=== PATIENT | female | born 1980 | race Two or more races ===

== ENCOUNTER → 2024-12-24 | Outpatient (CLI) | payer MEDICAID, SELFPAY ==
--- NOTE | 2024-12-24 13:00 | XR_ITS ---
Examination: Breast ultrasound, unilateral, left complete Date and time of exam: December 24, 2024 1334 hours INDICATIONS: Family history breast cancer, history ultrasound-guided breast biopsy 3:00 nodule left breast May 06, 2024, this nodule had a breast biopsy marker on ultrasound December 07, 2023 the nodule measured 26 x 22 mm Technique: Real-time luna scale ultrasonographic imaging performed left breast including all 4 quadrants as well as nipple retroareolar and axillary region. Findings: 2:00 cyst 15 x 14 mm 3:00 nodule with breast biopsy marker 24 x 19 mm lobular margins 10:00 nodule 7 x 7 mm 11:00 nodule 6 x 6 mm IMPRESSION: BI-RADS Category 3: Probably benign findings One additional 6 month right breast sonogram follow-up is needed to document stability of solid nodules described above
--- NOTE | 2024-12-24 13:41 | XR_ITS ---
Examination: Diagnostic digital mammography, bilateral Computer aided detection 3-D breast Tomosynthesis, bilateral Date and time of exam: December 24, 2024 1401 hours Compared to mammograms dating to September 26, 2022 Technique: Nonmagnified MLO, CC views of the breasts to been obtained, reconstructed from 3-D Tomosynthesis images. R2 computer aided detection program utilized for evaluation of suspicious masses and/or abnormal calcifications. 3-D Tomosynthesis images obtained. Findings: The breasts are heterogeneously dense, which may obscure small masses Breast biopsy markers left breast 11 mm circumscribed nodule at the palpable marker site nipple level left breast CC view which may represent a cyst, please see the left breast sonogram report today Grouped microcalcifications retroareolar region right breast Impression: BI-RADS Category 0: Incomplete: Need additional imaging evaluation Circumscribed 11 mm probably benign nodule at the palpable marker site left breast CC view, recommend 6 month left mammogram follow-up Recommend follow-up spot magnification views of microcalcifications retroareolar region right breast.
== END | disposition home or self-care (01) ==
LOC: CDIM 13:04
PROVIDERS: PCP Nurse Practitioner Family; Referring Provider Nurse Practitioner Family; Visit Provider Nurse Practitioner Family
DX: R92.8 Other abnormal and inconclusive findings on diagnostic imaging of breast (principal); R92.1 Mammographic calcification found on diagnostic imaging of breast
CPT/HCPCS: 76641; 77062; 77066; G0279

== ENCOUNTER → 2025-06-27 | Outpatient (CLI) | payer MEDICAID, SELFPAY ==
--- NOTE | 2025-06-27 07:30 | XR_ITS ---
Examination: Diagnostic digital mammography, unilateral, left Computer aided detection 3-D breast Tomosynthesis, unilateral Date and time of exam: June 27, 2025, 0750 hours INDICATIONS: 11 mm circumscribed nodule at the palpable marker/nipple level left breast Technique: Nonmagnified MLO, CC views of the left breast have been obtained, reconstructed from 3-D Tomosynthesis images. R2 computer aided detection program utilized for evaluation of suspicious masses and/or abnormal calcifications. 3-D Tomosynthesis images obtained. Findings: The breast is heterogeneously dense, which may obscure small masses Numerous calcifications 13 mm circumscribed nodule inner lower left breast Breast biopsy marker with adjacent nodule outer left breast, 11 mm Impression: BI-RADS category 0: Incomplete: Need additional imaging evaluation Recommend repeat left breast sonography to compare with the December 24, 2024 exam
== END | disposition home or self-care (01) ==
PROVIDERS: PCP Obstetrics & Gynecology; Referring Provider Obstetrics & Gynecology; Visit Provider Obstetrics & Gynecology
DX: R92.8 Other abnormal and inconclusive findings on diagnostic imaging of breast (principal)
CPT/HCPCS: 77061; 77065; G0279